=== PATIENT | female | born 1950 | race Caucasian/White ===

== ENCOUNTER → 2023-02-17 | Outpatient (CLI) | payer OTHER | END | disposition home or self-care (01) | LOC: US 02-03 17:00 | PROVIDERS: ATTEND Internal Medicine Nephrology | DX: N18.30 Chronic kidney disease, stage 3 unspecified (principal) ==

== ENCOUNTER 2025-09-26 14:01 | Emergency (ER) | payer OTHER, MEDICAID ==
[~2025-09-26] VITALS: Ht 167.6 cm; Wt 74.4 kg
[2025-09-26] MEDS ORDERED: Acetaminophen/Hydrocodone 5 MG/325 MG TABLET PO ONE (14:20)
== END 2025-09-26 16:03 | disposition home or self-care (01) ==
LOC: ED 14:01
DX: S90.01XA Contusion of right ankle, initial encounter (principal); Z91.040 Latex allergy status; V89.9XXA Person injured in unspecified vehicle accident, initial encounter; Y93.89 Activity, other specified; Y92.410 Unspecified street and highway as the place of occurrence of the external cause; Y99.8 Other external cause status